=== PATIENT | male | born 1985 | race Caucasian/White ===

== ENCOUNTER 2019-02-03 19:42 | Emergency (ER) | payer OTHER, SELFPAY ==
[2019-02-03] MEDS ORDERED: diphenhydrAMINE 25 MG CAP ONE (20:02)
== END 2019-02-03 20:45 | disposition home or self-care (01) ==
LOC: ERS 19:42
DX: R21 Rash and other nonspecific skin eruption (principal); I10 Essential (primary) hypertension; F31.9 Bipolar disorder, unspecified
CPT/HCPCS: 99282; Q0163

== ENCOUNTER 2019-09-25 05:26 | Emergency (ER) | payer OTHER | END 2019-09-25 06:48 | disposition home or self-care (01) | LOC: ERS 05:26 | DX: J39.9 Disease of upper respiratory tract, unspecified (principal); I10 Essential (primary) hypertension | CPT/HCPCS: 87804; 99284 ==

== ENCOUNTER 2022-10-19 05:06 | Emergency (ER) | payer OTHER | END 2022-10-19 07:57 | disposition home or self-care (01) | LOC: ERS 05:06 | DX: B34.9 Viral infection, unspecified (principal); F17.200 Nicotine dependence, unspecified, uncomplicated | CPT/HCPCS: 99283 ==